=== PATIENT | female | born 1970 | race Caucasian/White ===

== ENCOUNTER 2019-08-06 08:32 | Emergency (ER) | payer BC, SELFPAY ==
[2019-08-06 08:33] VITALS: BP 205/113; PULSE 75; RESP 18; TEMP 37; O2SAT 98; BMI 39.4
--- NOTE | 2019-08-06 08:51 | ED.DCSUM_ITS ---
- ER Visit Summary Date of Service: 08/06/19 Chief Complaint: Dental pain History of Present Illness: The patient is a 48 F who presents with dental pain that became worse today. Patient states she knows she has had a dental carry in her left lower molar area for the past year. Patient states that the pain and swelling became progressively worse today. Patient admits to increasing swelling. Patient denies any fevers or chills. Patient denies any hot or cold sensitivity. Patient states she has been taking Tylenol Motrin with no relief. Patient states she has been using Orajel with no relief. Patient denies any difficulty breathing or difficulty swallowing. Physical Examination: Vital signs are stable except for an elevated blood pressure of 205/113. Patient is in no acute distress. Patient is afebrile. Oral mucosa is pink and moist. There is a large dental caries noted over the left lower first molar. There is gingival edema around this tooth. There is no fluctuance. There is no sublingual edema or submandibular edema. Oropharynx is clear. Neck is supple. Trachea is midline. There is no JVD. There is no evidence of Regan angina. Emergency Department Course and Treatment: Patient was given a prescription for Pen-Vee K. Patient was instructed to take her blood pressure medicine when she goes home. Patient was instructed to continue Tylenol and Motrin as needed for pain. Patient was instructed to follow-up with her dentist in 3 to 5 days. Patient understood and was agreeable with the plan. All questions were answered. Disposition: Discharge home Impression: Infected dental caries This note was generated with [employer] dictation software. It may contain incorrect words, spelling, and punctuation that were not noted in review of the chart prior to signing ED Disposition - Plan for ED Patient: Disposition: Home or Assisted Living Diagnosis: Infected dental caries Instructions: Dental Abscess Prescriptions: Penicillin V Potassium 500 mg PO 4X/DAY #40 tab Prescription Printed Referrals: Ovi Bob MD [Primary Care Provider] - 5-7 Days Dentist,Your [STAFF PHYSICIAN] - 3-5 Days
[2019-08-06 09:02] VITALS: BP 183/103; PULSE 70; RESP 16; O2SAT 99
== END 2019-08-06 09:04 | disposition home or self-care (01) ==
LOC: ED 08:56
PROVIDERS: Emergency Provider Emergency Medicine; PCP Family Medicine
DX: K02.9 Dental caries, unspecified (principal); K04.7 Periapical abscess without sinus; I10 Essential (primary) hypertension; E66.9 Obesity, unspecified; Z68.39 Body mass index [BMI] 39.0-39.9, adult
CPT/HCPCS: 99282

== ENCOUNTER 2022-03-22 16:02 | Emergency (ER) | payer BC, SELFPAY ==
[2022-03-22 16:03] VITALS: BP 212/95; PULSE 84; RESP 16; TEMP 36.7; O2SAT 98; BMI 42.0
[2022-03-22 18:22] VITALS: BP 189/84; PULSE 77; RESP 18; O2SAT 98
--- NOTE | 2022-03-22 18:22 | EDS_ITS ---
HPI History of Present Illness Chief Complaint: Other, Pain/Inj Informant: patient Narrative Narrative: Patient is a 51-year-old female with history of hypertension on metoprolol presenting with rash as well as dental pain. Patient's had a rash on her bilateral extremities as well as her left arm for approximately 3 weeks. She also has an area on her abdomen. Is very itchy. She not aware of coming in contact with anything. She is been taking Goldbond medicated powder as well as Benadryl with no significant relief of her symptoms. In addition today she started having pain in her left upper jaw and had facial swelling. The swelling has waxed and waned over the course of the day. She last had [id number] medications around noon. She does have a known broken tooth has not been able to get in with a dentist. She denies any difficulty swallowing. No fever or chills. No vision changes. No other complaints at this time. PFSH PFSH Medical History Hypertension IBS (irritable bowel syndrome) Migraines Non-smoker Home Medications acetaminophen 500 mg tablet 500 - 1,000 mg PO Q6H PRN PRN Pain Or Fever 08/06/19 [History Last Taken 08/06/19 04:30] metoprolol tartrate 25 mg tablet 25 mg PO DAILY 08/06/19 [History Last Taken 08/05/19] penicillin V potassium 500 mg tablet 500 mg PO 4X/DAY #40 tabs 08/06/19 [Rx Last Taken Unknown] amoxicillin 875 mg-potassium clavulanate 125 mg tablet 1 tab PO Q12H #20 tabs 03/22/22 [Rx Last Taken Unknown] prednisone 10 mg tablet See Taper PO DAILY #63 tabs 03/22/22 [Rx Last Taken Unknown] Allergy/AdvReac Type Severity Reaction Status Date / Time No Known Allergies Allergy Verified 03/22/22 16:05 Social History Smoking Status: Never smoker ROS ROS ED Constitutional Constitutional ED: Denies chills or fever(s) Eyes Eyes: Denies blurry vision or change in vision ENT ENT ED: Reports other Details: Left upper dental pain and left sided facial swelling ; Denies rhinorrhea Cardiovascular Cardiovascular: Denies chest pain or palpitations Respiratory/Chest Respiratory/Chest: Denies cough Gastrointestinal Gastrointestinal: Denies abdominal pain, nausea or vomiting Musculoskeletal Musculoskeletal: Denies arthralgias or myalgias Integumentary Reports rash Neurologic Neurologic: Denies headache(s) or weakness Psychiatric Psychiatric: Denies anxiety EXAM Physical Exam Const Vital Signs: 03/22/22 16:03 03/22/22 17:49 Temperature 98.1 F Temperature Source Temporal Pulse Rate 84 Respiratory Rate 16 Respiratory Effort Normal Non-Labored Respiratory Pattern Normal Blood Pressure 212/95 H Blood Pressure Mean 134 Pulse Ox 98 Oxygen Delivery Method Room Air Positive well nourished and well developed General Appearance ED: well developed and NAD HEENT Reports moist mucous membranes HEENT Narrative: poor dentition with multiple missing teeth as well as a cracked left upper premolar with associated gingival swelling around. No obvious abscess amenable to drainage. Patient has swelling but no overlying erythema or induration of the left cheek. Sublingual mucosa is normal-appearing. Normal oropharynx and uvula is midline. Cerumen impaction of the left tympanic membrane. Normal right tympanic membrane. Eyes PERRL and EOMs intact bilaterally Neck supple Neck Narrative: Normal range of motion Chest Wall inspection of chest normal Resp normal respiratory effort and clear to auscultation bilaterally Cardio regular rate, regular rhythm and no murmurs GI normal to inspection, nondistended, normoactive bowel sounds and non-tender Neuro oriented x3 and CN's II-XII intact bilaterally Motor Exam: Negative for general weakness Psych mental status grossly normal Skin Skin Narrative: Raised erythematous rash in a linear distribution along the anterior aspect of the bilateral legs approximately 2 cm in width with scattered macules. There is associated excoriations. This rash is also present on the left posterior calf again in a linear distribution as well as scattered in the left axilla. No associated drainage or surrounding cellulitic changes appreciated. Negative Nikolsky sign. No vesicles appreciated. No obvious crusting present at this time. MDM MDM MDM Narrative Medical decision making narrative: Patient is evaluated for rashes been present for 3 weeks as well as 1 day of dental pain as well as facial swelling. The rash is consistent with a contact dermatitis however patient cannot recall which came in contact with. It has a very well differentiated border on the extremities so I suspect it was something in the environment. She is placed on a prednisone taper for this given how large the area covers. In addition she has a cracked tooth with likely secondary periapical abscess. Not amenable to I&D in the ER. Patient is star joss on Augmentin for this. Is given first dose of prednisone in the ER for her rash. Counseled alternate ibuprofen and Tylenol but instructed to not take prednisone and ibuprofen at the same time as it can cause upset stomach. Is given a dose of Tylenol in the ER. Encouraged to follow-up with dentist next week. Patient verbalized agreement understand this plan. She states she does have a dentist. Discharge Plan Triage Chief Complaint: Other, Pain/Inj ED Provider: Lyla Gallegos Dx/Rx/DC Orders Clinical Impression: Abscess, dental, Contact dermatitis, Broken or cracked tooth, nontraumatic, Hypertension Instructions: ED Contact Dermatitis, ED Dental Abscess Prescriptions: New amoxicillin-pot clavulanate 875-125 mg tablet 1 tab PO Q12H Qty: 20 0RF prednisone 10 mg tablet See Taper PO DAILY Qty: 63 0RF Taper: Prednisone Taper 60 mg WITH BREAKFAST for 3 Days and 0 Hour 50 mg WITH BREAKFAST for 3 Days and 0 Hour 40 mg WITH BREAKFAST for 3 Days and 0 Hour 30 mg WITH BREAKFAST for 3 Days and 0 Hour 20 mg WITH BREAKFAST for 3 Days and 0 Hour 10 mg WITH BREAKFAST for 3 Days and 0 Hour No Action acetaminophen 500 MG tablet 500 - 1,000 mg PO Q6H PRN PRN (Reason: Pain Or Fever) metoprolol tartrate 25 MG tablet 25 mg PO DAILY penicillin V potassium 500 MG tablet 500 mg PO 4X/DAY Qty: 40 0RF Primary Care Provider: Ovi Bob Referrals: Ovi Bob MD [Primary Care Provider] - Activity Restrictions/Additional Instructions: Please follow-up with dentist next week for your tooth/mouth swelling. Return if you have worsening symptoms. Complete the entire prednisone taper for your itching/rash. Alternate ibuprofen and Tylenol. Do not take ibuprofen at the same time as the prednisone. Disposition Disposition: Home, Self Care
[2022-03-22] MEDS: Acetaminophen 325 MG Tablet 650 MG PO (18:31)
[2022-03-22] MEDS: predniSONE 20 MG Tablet 60 MG PO (18:31)
[2022-03-22] MEDS: Amox/Clavulanate 875 MG Tablet PO (18:32)
[2022-03-22 18:35] VITALS: BP 189/84; PULSE 77; RESP 18; O2SAT 98
== END 2022-03-22 18:36 | disposition home or self-care (01) ==
PROVIDERS: Emergency Provider Emergency Medicine; PCP Family Medicine; Visit Provider Emergency Medicine
DX: K04.7 Periapical abscess without sinus (principal); L25.9 Unspecified contact dermatitis, unspecified cause; I10 Essential (primary) hypertension
CPT/HCPCS: 99283